=== PATIENT | male | born 1970 | race Caucasian/White ===

== ENCOUNTER 2023-01-07 12:23 | Observation (INO) | payer BC ==
[2023-01-07 12:30] VITALS: BMI 28.7
[2023-01-07] MEDS ORDERED: SODIUM CHLORIDE 1,000 ML IV SCH (12:45)
[2023-01-07 13:25] LABS: BASO % 0.6 % (0-2.0); HEMATOCRIT 53.1 % (35.4-49); HEMOGLOBIN 18.1 GM/dL (11.7-16.9); LYMPH % 20.2 % (8-40); MCH 29.7 pg (25.7-33.7); MCHC 34.2 g/dl (32.0-35.9); MEAN CELL VOLUME 86.8 fl (80-96); MEAN PLT VOLUME 6.9 fl (7.5-11.1); MONO % 11.7 % (3.8-10.2); NEUT % 66.5 % (42.8-82.8); PLATELET COUNT 294 10^3/uL (134-434); RBC 6.11 M/mm3 (4.00-5.60); RDW 14.4 % (11.9-15.9); WHITE BLOOD COUNT 9.1 K/mm3 (4.0-10.0)
[2023-01-07 13:36] LABS: ACTIVATED PTT 45.7 SECONDS (25.2-36.5); INR 1.08 (0.83-1.09); POTASSIUM 3.9 mmol/L (3.5-5.1); PROTHROMBIN TIME (PATIENT) 12.5 SEC (9.7-13.0)
[2023-01-07 13:38] LABS: ALBUMIN 4.3 g/dl (3.4-5.0); BLOOD UREA NITROGEN 12.7 mg/dL (7-18); CALCIUM 9.7 mg/dL (8.5-10.1)
[2023-01-07 13:43] LABS: TOT PROT 7.9 g/dl (6.4-8.2)
[2023-01-07 13:44] LABS: BILIRUBIN,TOTAL 1.6 mg/dL (0.2-1)
[2023-01-07] MEDS ORDERED: ACETAMINOPHEN 1000 MG/100 ML BAG IVPB ONE (14:54)
[2023-01-07] MEDS ORDERED: ACETAMINOPHEN INJECTION 100 ML IVPB ONE (15:06)
[2023-01-07] MEDS ORDERED: ASPIRIN 81 MG CHEWABLE TABLETS PO ONE (15:49)
[2023-01-07] MEDS ORDERED: ATORVASTATIN CA 40 MG TABLET (FP) PO ONE (15:50)
[2023-01-07] MEDS ORDERED: KETOROLAC TROMETHAMINE 30 MG/1 ML VIAL IVPUSH ONE (16:12)
[2023-01-07] MEDS ORDERED: ASPIRIN 81 MG CHEWABLE TABLETS ONE (16:19)
[2023-01-07] MEDS ORDERED: ATORVASTATIN CA 40 MG TABLET (FP) ONE ×2 (16:19→21:29)
[2023-01-07] MEDS ORDERED: KETOROLAC TROMETHAMINE 30 MG/1 ML VIAL ONE (16:20)
[2023-01-07] MEDS ORDERED: HEPARIN NA (PORCINE) 5,000 UNITS/ML 1ML VIAL ONE (21:29)
[2023-01-07] MEDS ORDERED: ATORVASTATIN CA 40 MG TABLET (FP) PO SCH (22:00)
[2023-01-07] MEDS: HEPARIN NA (PORCINE) 5,000 UNITS/ML 1ML VIAL SQ SCH (22:15)
[2023-01-07] MEDS ORDERED: KETOROLAC TROMETHAMINE 15 MG/ML VIAL IVPUSH ONE (22:19)
[2023-01-07] MEDS ORDERED: ACETAMINOPHEN 325 MG TABLET (FP) ONE (23:01)
[2023-01-07] MEDS: ACETAMINOPHEN 325 MG TABLET (FP) PO PRN (23:05)
[2023-01-07 23:43] LABS: URINE APPEARANCE CLEAR; URINE BILIRUBIN NEGATIVE (NEGATIVE); URINE COLOR YELLOW; URINE GLUCOSE (UA) NEGATIVE (NEGATIVE); URINE KETONE 40 mg/dl (NEGATIVE); URINE PROTEIN 30 (NEGATIVE)
[2023-01-07 23:44] LABS: URINE LEUK ESTERASE N (NEGATIVE); URINE NITRITE NEGATIVE (NEGATIVE); URINE UROBILINOGEN 0.2 mg/dL (0.2-1.0)
[2023-01-07 23:45] LABS: EPI CELLS 8.9 /uL (0-25.1); HYALINE CASTS 0.58 /uL (0-3.1); URINE BACTERIA 9.3 /uL (0-1359); URINE RBC 63.2 /uL (0-23.9); URINE WBC 17.6 /uL (0-25.8)
[2023-01-08] MEDS ORDERED: morphine SULFATE 4 MG/ML VIAL IVPUSH ONE (01:28)
[2023-01-08] MEDS ORDERED: morphine SULFATE 4 MG/ML VIAL ONE (01:43)
[2023-01-08 07:22] LABS: BASO % 0.7 % (0-2.0); EOS % 2.9 % (0-4.5); HEMATOCRIT 50.6 % (35.4-49); LYMPH % 26.3 % (8-40); MCH 29.2 pg (25.7-33.7); MCHC 33.6 g/dl (32.0-35.9); MEAN PLT VOLUME 7.1 fl (7.5-11.1); MONO % 12.6 % (3.8-10.2); NEUT % 57.5 % (42.8-82.8); PLATELET COUNT 279 10^3/uL (134-434); RBC 5.82 M/mm3 (4.00-5.60); RDW 14.4 % (11.9-15.9); WHITE BLOOD COUNT 7.6 K/mm3 (4.0-10.0)
[2023-01-08 07:45] LABS: POTASSIUM 3.6 mmol/L (3.5-5.1)
[2023-01-08 07:50] LABS: CALCIUM 8.7 mg/dL (8.5-10.1)
[2023-01-08 07:51] LABS: BLOOD UREA NITROGEN 11.1 mg/dL (7-18)
[2023-01-08] MEDS ORDERED: ACETAMINOPHEN 325 MG TABLET (FP) ONE (08:58)
[2023-01-08] MEDS: HEPARIN NA (PORCINE) 5,000 UNITS/ML 1ML VIAL SQ SCH (09:09)
[2023-01-08] MEDS: ACETAMINOPHEN 325 MG TABLET (FP) PO PRN (09:10)
[2023-01-08] MEDS ORDERED: FAMOTIDINE 40 MG TABLET PO SCH (10:00)
[2023-01-08] MEDS ORDERED: ASPIRIN COATED 81 MG TABLET.EC PO SCH (10:00)
[2023-01-08] MEDS ORDERED: FAMOTIDINE 20 MG TABLET PO SCH (10:00)
[2023-01-08] MEDS ORDERED: LISINOPRIL 20 MG TABLET PO SCH (10:00)
[2023-01-08] MEDS ORDERED: ATORVASTATIN CA 80 MG TABLET (FP) PO SCH (10:25)
[2023-01-08 14:15] VITALS: RESP 18
[2023-01-08] MEDS ORDERED: metoPROLOL SUCCINATE 25 MG TAB.SR.24H (FP) PO SCH (15:15)
[2023-01-08] MEDS ORDERED: metoPROLOL SUCCINATE 25 MG TAB.SR.24H (FP) PO ONE (16:04)
[2023-01-08 17:13] VITALS: BP 151/75; PULSE 62; TEMP 98.5
== END 2023-01-08 17:10 | disposition left against medical advice (07) ==
LOC: JER 12:23 → JERBED 15:43
PROVIDERS: ADMIT Internal Medicine
PROC: 3E033NZ Introduction of Analgesics, Hypnotics, Sedatives into Peripheral Vein, Percutaneous Approach (ICD-10-PCS; principal; 2023-01-07)
PROC: 3E023GC Introduction of Other Therapeutic Substance into Muscle, Percutaneous Approach (ICD-10-PCS; 2023-01-07)
PROC: 3E0333Z Introduction of Anti-inflammatory into Peripheral Vein, Percutaneous Approach (ICD-10-PCS; 2023-01-07)
DX: G45.9 Transient cerebral ischemic attack, unspecified (principal); M48.02 Spinal stenosis, cervical region; I10 Essential (primary) hypertension; M50.83 Other cervical disc disorders, cervicothoracic region; Z96.653 Presence of artificial knee joint, bilateral; Z91.041 Radiographic dye allergy status
CPT/HCPCS: 36415; 70450-TC; 70496-TC; 70498-TC; 70551-TC; 80048; 80053; 80061; 81003; 82550; 82962; 83036; 84484; 85025; 85610; 85730; 86850; 86900; 86901; 93005; 93010; 93306-TC; 93880-TC; 99285-25; G0378; J1644